=== PATIENT | female | born 1975 | race Hispanic/Latino ===

== ENCOUNTER 2025-06-26 12:35 | Emergency (ER) | payer BC ==
[~2025-06-26] VITALS: Ht 152.4 cm; Wt 72.6 kg
[2025-06-26 13:00] VITALS: TEMP 98.6
[2025-06-26 13:30] LABS: BASOPHILS % 0.4 % (0.0-1.0); EOSINOPHILS % 0.7 % (0.0-6.0); LYMPHOCYTES % 31.5 % (18.0-39.1); MONOCYTES % 6.3 % (4.4-11.3); NEUTROPHILS % 61.0 % (38.7-80.0); RED CELL DISTRIBUTION WIDTH 13.3 % (11.7-14.4)
[2025-06-26 13:33] LABS: LEUKOCYTE ESTERASE ,URINE NEGATIVE (NEGATIVE); PROTEIN,URINE DIPSTICK NEGATIVE (NEGATIVE); URINE UROBILINOGEN 0.2 mg/dL (0.2 - 1)
[2025-06-26] MEDS: KETOROLAC TROMETHAMINE 30 MG/ML VIAL IV STA (13:39)
[2025-06-26] MEDS: SODIUM CHLORIDE 0.9% 1000ML 1,000 ML IV ONE (13:40)
[2025-06-26 13:43] LABS: EPITHELIAL CELLS,URINE MODERATE /LPF; WBC,URINE (MAN) 0-5 /HPF (0-5)
[2025-06-26 13:52] LABS: EST GLOMERULAR FILTRATION RATE 109 ML/MIN (>=60)
[2025-06-26] MEDS ORDERED: IOPAMIDOL 370 MG/ML 100 ML INFUS..BTL INJ ONE (14:26)
[2025-06-26 16:00] VITALS: PULSE 76; RESP 18
[2025-06-26 17:26] VITALS: BP 129/84; PULSE 74; RESP 18; TEMP 98.3; O2SAT 98
== END 2025-06-26 17:28 | disposition home or self-care (01) ==
LOC: ER 12:50
DX: R10.32 Left lower quadrant pain (principal); D25.9 Leiomyoma of uterus, unspecified
CPT/HCPCS: 36415; 74177; 80053; 81001; 83690; 84702; 85025; 99284; J1885; J7030; Q9967

== ENCOUNTER 2025-06-27 17:52 | Emergency (ER) | payer BC | END 2025-06-27 18:10 | disposition short-term general hospital (02) | LOC: ER 18:10 | DX: R10.9 Unspecified abdominal pain (principal) ==